=== PATIENT | female | born 1985 | race Caucasian/White ===

== ENCOUNTER 2021-08-26 10:39 | Emergency (ER) | payer OTHER, MEDICAID, SELFPAY ==
[2021-08-26 10:51] VITALS: BP 119/75; PULSE 100; RESP 15; TEMP 36.9; O2SAT 100; BMI 20.5
[2021-08-26 11:22] LABS: COVID19 -Nasal RAPID Negative (Negative)
[2021-08-26] MEDS: OXYCODONE/ACETAMINOPHEN 5/325 TABLET 1 TAB PO (13:07)
[2021-08-26] MEDS: cefTRIAXone 2,000 MG VIAL 1000 MG IM (13:07)
[2021-08-26] MEDS: KETOROLAC 10 MG TABLET PO (13:08)
[2021-08-26] MEDS: DOXYCYCLINE HYCLATE 100 MG TABLET PO (13:08)
[2021-08-26] MEDS: LIDOCAINE 1% (PF) 5 ML 4.2 ML INJ (13:09)
[2021-08-26 13:48] VITALS: BP 126/78; PULSE 92; RESP 18; TEMP 36.4; O2SAT 97
[2021-08-26 15:33] LABS: Urine N gonorrhoeae NOT DETECTED
[2021-08-26 15:39] LABS: Urine Chlamydia NOT DETECTED
--- NOTE | 2021-08-26 16:04 | ED.EAR ---
HPI - Ear Problem <DRAGAN Martinez - Last Filed: 08/26/21 16:13> General Chief complaint: Ear Stated complaint: right ear is in pain, throat hurts, pink eye Time Seen by Provider: 08/26/21 12:27 Source: patient Mode of arrival: Ambulatory History of Present Illness HPI Narrative: This is a 36-year-old female who presents to the emergency department with onset of right ear pain two days ago, and bilateral eye tearing with discharge and eye pain that started yesterday. She states that she is having discharge coming from both eyes, denies any fever, complains of feeling warm and having right ear pain which is quite painful. She denies any shortness of breath, difficulty breathing, denies any possibility of gonorrhea or chlamydia contamination in her eye. She denies any vision changes, denies any nausea vomiting, diarrhea. She denies any injury to her eye. Related Data Allergies Allergy/AdvReac Type Severity Reaction Status Date / Time azithromycin Allergy Verified 08/26/21 10:53 Review of Systems <DRAGAN Martinez - Last Filed: 08/26/21 16:13> Review of Systems Narrative: General: denies fever, chills, malaise, sweats, fatigue Head/Neck: denies headache, neck pain, dizziness Eyes: denies visual changes, endorses bilateral eye redness with thick white discharge, eyelid edema Ears: Rt ear pain, no hearing changes Cardio: denies chest pain, palpitations, edema Respiratory: denies dyspnea, cough, orthopnea GI: denies abdominal pain, nausea, vomiting, or diarrhea : denies dysuria, hematuria, urinary retention, frequency or incontinence MSK: denies joint pain, muscle weakness Skin: denies rash, itching, skin lesions or other Neuro: denies numbness, tingling Patient History <DRAGAN Martinez - Last Filed: 08/26/21 16:13> Social History Smoking Status: Current every day smoker Smoking Status: Current every day smoker tobacco type: vaping alcohol intake frequency: holidays/special occasions only Substance Use Type: does not use Exam <DRAGAN Martinez - Last Filed: 08/26/21 16:13> Narrative Exam Narrative: Independently reviewed vitals signs and nursing notes. General: cooperative, comfortable, in no acute distress, well groomed Head: atraumatic, symmetrical facial expressions Neck: supple, without cervical adenopathy Eyes: equal round and reactive, EOMI, bilateral conjunctivae injected with thick eye discharge coming from both eyes, culture obtained, mild scleral erythema bilaterally Ears: Right TM is bulging, erythematous, suppurative, loss of landmarks and light reflex, left TM is not suppurative, without erythema, normal landmarks Nose: nares patent, no rhinorrhea Mouth/Throat: moist mucus membranes Cardiovascular: regular rate and rhythm, no peripheral edema, warm extremities Respiratory: normal effort, able to speak in complete sentences, no audible wheezing, stridor, or rales. No retractions or tachypnea. GI: abdomen soft, nontender to palpation, nondistended, no masses, no exquisite tenderness with exam, without guarding or rebound. MSK: moves all extremities, neurovascularly intact, no weakness, normal tone Skin: brisk capillary refill, no rash, no erythema Neuro: normal speech and cognition, A&O x3 Psych: mental status is grossly normal, congruent mood, normal affect, pleasant and cooperative Initial Vital Signs Initial Vital Signs: Vital Signs Temperature 98.5 F 08/26/21 10:51 Pulse Rate 100 H 08/26/21 10:51 Respiratory Rate 15 08/26/21 10:51 Blood Pressure 119/75 08/26/21 10:51 Pulse Oximetry 100 08/26/21 10:51 Oxygen Delivery Method 08/26/21 10:51 <Emili Stanley DO - Last Filed: 09/03/21 18:36> Initial Vital Signs Initial Vital Signs: Vital Signs Temperature 98.5 F 08/26/21 10:51 Pulse Rate 100 H 08/26/21 10:51 Respiratory Rate 15 08/26/21 10:51 Blood Pressure 119/75 08/26/21 10:51 Pulse Oximetry 100 08/26/21 10:51 Oxygen Delivery Method 08/26/21 10:51 Course <SUMAN MartinezP - Last Filed: 08/26/21 16:13> Orders Ordered: Discontinued Medications Ceftriaxone Sodium (Ceftriaxone 2,000 Mg Vial) 1,000 mg IM NOW ONE Stop: 08/26/21 12:35 Last Admin: 08/26/21 13:07 Dose: 1,000 mg Documented By: JESSICA Doxycycline Hyclate (Doxycycline Hyclate 100 Mg Tablet) 100 mg PO NOW ONE Stop: 08/26/21 12:35 Last Admin: 08/26/21 13:08 Dose: 100 mg Documented By: JESSICA Ketorolac Tromethamine (Ketorolac 10 Mg Tablet) 10 mg PO NOW ONE Stop: 08/26/21 12:35 Last Admin: 08/26/21 13:08 Dose: 10 mg Documented By: RL Lidocaine HCl (Lidocaine 1% (Pf) 5 Ml) 4.2 ml INJ NOW ONE Stop: 08/26/21 12:35 Last Admin: 08/26/21 13:09 Dose: 4.2 ml Documented By: JESSICA Oxycodone/Acetaminophen (Oxycodone/Acetaminophen 5/325 Tablet) 1 tab PO NOW ONE Stop: 08/26/21 12:35 Last Admin: 08/26/21 13:07 Dose: 1 tab Documented By: JESSICA Vital Signs Vital signs: Vital Signs - 8 hr 08/26/21 10:51 08/26/21 13:48 Temperature 98.5 F 97.6 F Pulse Rate 100 H 92 H Respiratory Rate 15 18 Blood Pressure 119/75 126/78 Pulse Oximetry 100 97 Oxygen Delivery Method Room Air Room Air <Emili Stanley DO - Last Filed: 09/03/21 18:36> Orders Ordered: Discontinued Medications Ceftriaxone Sodium (Ceftriaxone 2,000 Mg Vial) 1,000 mg IM NOW ONE Stop: 08/26/21 12:35 Last Admin: 08/26/21 13:07 Dose: 1,000 mg Documented By: JESSICA Doxycycline Hyclate (Doxycycline Hyclate 100 Mg Tablet) 100 mg PO NOW ONE Stop: 08/26/21 12:35 Last Admin: 08/26/21 13:08 Dose: 100 mg Documented By: JESSICA Ketorolac Tromethamine (Ketorolac 10 Mg Tablet) 10 mg PO NOW ONE Stop: 08/26/21 12:35 Last Admin: 08/26/21 13:08 Dose: 10 mg Documented By: JESSICA Lidocaine HCl (Lidocaine 1% (Pf) 5 Ml) 4.2 ml INJ NOW ONE Stop: 08/26/21 12:35 Last Admin: 08/26/21 13:09 Dose: 4.2 ml Documented By: JESSICA Oxycodone/Acetaminophen (Oxycodone/Acetaminophen 5/325 Tablet) 1 tab PO NOW ONE Stop: 08/26/21 12:35 Last Admin: 08/26/21 13:07 Dose: 1 tab Documented By: JESSICA Vital Signs Vital signs: Vital Signs - 8 hr 08/26/21 10:51 08/26/21 13:48 Temperature 98.5 F 97.6 F Pulse Rate 100 H 92 H Respiratory Rate 15 18 Blood Pressure 119/75 126/78 Pulse Oximetry 100 97 Oxygen Delivery Method Room Air Room Air Medical Decision Making <Carolee Kumari R[employer] D[employer] HELPER - Last Filed: 08/26/21 16:13> Lab Data Labs: Lab Results 08/26/21 08/26/21 Range/Units 11:04 13:50 Ur Chlamydia DNA (PCR) Not detected SARS-CoV-2 (PCR) Negative (Negative) N gonorrhoeae DNA (PCR) Not detected Point of Care Testing Rapid Strep A Negative Point of care testing: Point of Care Testing Rapid Strep A Negative MDM Narrative Medical decision making narrative: This is a 36-year-old female presents to the emergency department with bilateral eye inflammation, pain and discharge, and right ear pain with symptoms starting last night. Patient's COVID PCR was negative today, urine was screened for chlamydia and gonorrhea, this was negative, culture obtained from conjunctival discharge, g stain shows many white blood cells without organisms, cultures pending, throat culture obtained, patient's rapid group a strep was negative. On exam, patient's right tympanic membrane is bulging, suppurative, erythematous, and appears like acute otitis media. Discussed possibility of gonorrhea or chlamydial infection, patient denies this being a possibility. Patient was treated in the emergency department with concern for gonorrhea due to the copious amount of discharge coming from both of her eyes. She was given 1 g of ceftriaxone and doxycycline in the emergency department, she was given Percocet and Toradol for pain. States that she feels better, she wishes to discharge prior to waiting for her urine gonorrhea and chlamydia which was negative. She was prescribed Augmentin for seven days b.i.d. dosing pending her cultures. I have a strong suspicion that this is gonorrhea or chlamydia. She was given Polytrim ophthalmic drops and Augmentin. Patient is appropriate and amenable to discharge home. Vital signs are stable on repeat examination is unremarkable. Patient has been informed of results. Patient has been given strict return to ER precautions for any new or worsening symptoms. Patient understands to follow up closely with outpatient providers as instructed. Patient understands plan and agrees to discharge home. All questions and concerns answered at this time. <Emili Lizeth, DO - Last Filed: 09/03/21 18:36> Lab Data Labs: Lab Results 08/26/21 08/26/21 Range/Units 11:04 13:50 Ur Chlamydia DNA (PCR) Not detected SARS-CoV-2 (PCR) Negative (Negative) N gonorrhoeae DNA (PCR) Not detected Point of Care Testing Rapid Strep A Negative Point of care testing: Point of Care Testing Rapid Strep A Negative Discharge Plan Departure Patient Disposition: Home Clinical Impression: Otitis media Qualifiers: Otitis media type: suppurative Chronicity: acute Laterality: right Recurrence: non-recurrent Spontaneous tympanic membrane rupture: without spontaneous rupture Qualified Code(s): H66.001 - Acute suppurative otitis media without spontaneous rupture of ear drum, right ear Acute bacterial conjunctivitis Qualifiers: Laterality: bilateral Qualified Code(s): H10.33 - Unspecified acute conjunctivitis, bilateral Instructions: Middle Ear Infection, Conjunctivitis Activity Restrictions/Additional Instructions: *You have been diagnosed with a right ear infection and bilateral conjunctivitis. I will call you if your cultures grow out anything that needs an antibiotic adjustment. So far for now, please take Augmentin twice a day for the next seven days. For your eyes, please use the Polytrim eye drops every 3 hours as needed for at least seven days. Please follow-up with Dr. Taylor if this gets any worse, on my call you later today and add on another antibiotic and was sent to this pharmacy if I need to. Thank you for trusting us with your care, thank you for your patients, I hope you feel better soon. *What to do: *Please continue to take your regular medications as directed. [ x] New medication prescriptions sent to your pharmacy: [Dre jennifer Godoy ] [ ] New medication written as a paper prescription [ ] No new medications given *Please follow up with your primary care provider in 2-3 days, call for an appointment. Let them know you were seen in the Emergency Department and that we asked that you be seen for follow-up. We will electronically transmit a record of today's note if your PCP is in our system *If you do not have a primary care provider please contact [phone] to establish care with one of the [facility] primary care providers. *Return to Emergency Department if you should have any new, worsening or concerning symptoms, such as [fever greater than 101F, chills, worsening pain, persistent vomiting or other bothersome symptoms] Referrals: Tali Taylor MD [Physician] - Visit Report Forms: Patient Portal/API <Emili Stanley DO - Last Filed: 09/03/21 18:36> Cosign ED Attending Wilmanature Attestation: I was immediately available in the department for consultation. Documentation has been reviewed. I agree with assessment and plan.
== END 2021-08-26 13:54 | disposition home or self-care (01) ==
PROVIDERS: Emergency Medicine; Emergency Provider Nurse Practitioner Critical Care Medicine
DX: H66.001 Acute suppurative otitis media without spontaneous rupture of ear drum, right ear (principal); H10.33 Unspecified acute conjunctivitis, bilateral; Z20.822 Contact with and (suspected) exposure to COVID-19
CPT/HCPCS: 87070; 87077; 87205; 87491; 87591; 87635; 87880; 96372; 99283; C9803; J0696

== ENCOUNTER 2023-04-14 17:12 | Emergency (ER) | payer OTHER, MEDICAID, SELFPAY ==
[2023-04-14 17:28] VITALS: BP 114/63; PULSE 80; RESP 16; TEMP 36.7; O2SAT 98; BMI 19.7
--- NOTE | 2023-04-14 17:29 | DI.RAD.S_ITS ---
PROCEDURE: XR WRIST LT MIN 3V INDICATIONS: pain, swelling TECHNIQUE: 4 views of the wrist were acquired. COMPARISON: None. FINDINGS: Bones: No fractures or dislocations. No suspicious bony lesions. Soft tissues: No suspicious soft tissue calcifications. IMPRESSION: No acute bony abnormality. If it would be helpful for clinical management decision making, please consider a dedicated, scheduled wrist MRI for further evaluation (assuming that there is no contraindication). If there is strong clinical concern for a ligamentous abnormality, this should be performed according to the MR arthrogram protocol. Dictated by: Leland Hood M.D. on 04/14/2023 at 17:17 Approved by: Leland Hood M.D. on 04/14/2023 at 17:18
--- NOTE | 2023-04-14 17:31 | ED.UPPEXIN ---
HPI - Extremity Injury (Upper) <ISABELLA Swann Last Filed: 04/14/23 18:29> General Chief Complaint: Extremity Injury, Upper Stated Complaint: wrist pain Time Seen by Provider: 04/14/23 17:31 Source: patient Mode of arrival: Ambulatory History of Present Illness HPI narrative: This is a 37-year-old female presents to the emergency department due to left wrist weakness onset 3 days ago. States that she ?slept on it funny? she was unable to extend at her left wrist. She denies any pain. Does state she was mild peripheral neuropathy chronically. No trauma to the wrist. Related Data Allergies Allergy/AdvReac Type Severity Reaction Status Date / Time azithromycin Allergy Verified 08/26/21 10:53 Review of Systems <ISABELLA Swann Last Filed: 04/14/23 18:29> Review of Systems Narrative: GENERAL: Denies chills, fatigue, malaise, fever, sweats. HEENT: Denies sinus pain, ear pain, sore throat, difficulty swallowing, dizziness. RESPIRATORY: Denies dyspnea, cough, wheezing, hemoptysis, sputum. CARDIOVASCULAR: Denies chest pain, palpitations, orthopnea, edema, GASTROINTESTINAL: Denies nausea, vomiting, abdominal pain, diarrhea, constipation, melena. : Denies dysuria, frequency, incontinence, hematuria, urinary retention. MUSCULOSKELETAL: Left wrist weakness SKIN: Denies rash, skin lesions, or other NEUROLOGIC: Denies weakness, headache, numbness, change in speech, confusion, seizures, incoordination. PSYCHIATRIC: No concerning psychosocial issues. 12 point review of systems is negative except for those stated above Patient History <ISABELLA Swann Last Filed: 04/14/23 18:29> Social History Smoking Status: Current every day smoker Smoking Status: Current every day smoker tobacco type: vaping alcohol intake frequency: holidays/special occasions only Substance Use Type: does not use Exam <ISABELLA Swann Last Filed: 04/14/23 18:29> Narrative Exam Narrative: GENERAL: Well-developed patient, in mild distress. HEAD: Atraumatic. Normocephalic. EYES: Pupils equal round and reactive. Extraocular motions intact. No scleral icterus. No injection or drainage. ENT: Nose without bleeding, purulent drainage. Throat without erythema, tonsillar hypertrophy or exudate. Airway patent. NECK: Trachea midline. Non tender EXTREMITIES: Decreased ability to extend at the wrist, no pain with palpation. Maintains adequate childrens club attendant strength NEURO: AOx3. SKIN: No rash or erythema of visible areas Initial Vital Signs Initial Vital Signs: Vital Signs Temperature 98.1 F 04/14/23 17:28 Pulse Rate 80 04/14/23 17:28 Respiratory Rate 16 04/14/23 17:28 Blood Pressure 114/63 04/14/23 17:28 Pulse Oximetry 98 04/14/23 17:28 Oxygen Delivery Method Room Air 04/14/23 17:28 <DO Nandini Marcelino Last Filed: 04/15/23 07:12> Initial Vital Signs Initial Vital Signs: Vital Signs Temperature 98.1 F 04/14/23 17:28 Pulse Rate 80 04/14/23 17:28 Respiratory Rate 16 04/14/23 17:28 Blood Pressure 114/63 04/14/23 17:28 Pulse Oximetry 98 04/14/23 17:28 Oxygen Delivery Method Room Air 04/14/23 17:28 Course <Tobias Jones PA-C - Last Filed: 04/14/23 18:29> Orders Ordered: ED Orders 04/14/23 17:29 XR wrist LT min 3V Stat Vital Signs Vital signs: Vital Signs - 8 hr 04/14/23 17:28 Temperature 98.1 F Pulse Rate 80 Respiratory Rate 16 Blood Pressure 114/63 Pulse Oximetry 98 Oxygen Delivery Method Room Air <DO Nandini Marcelino Last Filed: 04/15/23 07:12> Orders Ordered: ED Orders 04/14/23 17:29 XR wrist LT min 3V Stat Vital Signs Vital signs: Vital Signs - 8 hr 04/14/23 17:28 Temperature 98.1 F Pulse Rate 80 Respiratory Rate 16 Blood Pressure 114/63 Pulse Oximetry 98 Oxygen Delivery Method Room Air MDM - Extremity Injury (Upper) <ISABELLA Swann Last Filed: 04/14/23 18:29> Imaging Data Extremity x-ray #1: Radiologist's Impression: [address] [address] XRay Report Signed Patient: Carolee Cortez MR#: [id number] : 1985 Acct:[id number] Age/Sex: 37 / F Date of Service: 04/14/23 Loc: ED Accession Number: [id number] Procedure: XR wrist LT min 3V Ordering Provider: Augustine Bess D.O. PROCEDURE: XR WRIST LT MIN 3V INDICATIONS: pain, swelling TECHNIQUE: 4 views of the wrist were acquired. COMPARISON: None. FINDINGS: Bones: No fractures or dislocations. No suspicious bony lesions. Soft tissues: No suspicious soft tissue calcifications. IMPRESSION: No acute bony abnormality. If it would be helpful for clinical management decision making, please consider a dedicated, scheduled wrist MRI for further evaluation (assuming that there is no contraindication). If there is strong clinical concern for a ligamentous abnormality, this should be performed according to the MR arthrogram protocol. Dictated by: Leland Hood M.D. on 04/14/2023 at 17:17 Approved by: Leland Hood M.D. on 04/14/2023 at 17:18 [facility] Narrative Medical decision making narrative: ED course: This is a 37-year-old female presents emergency department due to suspected radial nerve palsy after sleeping on it wrong. No trauma to the wrist. X-rays unremarkable. We will place her in a wrist splint and recommended wrist exercises. Suspect self-limiting. No weakness to the remainder of her body and very low concern for any kind CVA. CC: Wrist weakness Complicating co-morbidities: None Data collected from: Previous notes Medical records reviewed: Patient was seen here 2 years ago due to bacterial conjunctivitis. No relevant medical history Differential considered, but not limited to: Fracture, radial nerve palsy, intracranial bleed Exam documented above, pertinent findings include: Weakness with extension of the wrist Lab Test results independently reviewed as above. Pertinent findings: None obtained Imaging studies independently reviewed: Unremarkable Scores Used: None MIPS Elements: None Consultations: None Treatments: Wrist brace Re-evaluations: None Discussion: Discussed plan with the patient was comfortable with the plan Diagnosis: Radial nerve palsy Disposition: see below, along with detailed discharge instructions that have been reviewed with patient as well as indications for ED re-evaluation and additional outpatient follow up Discharge Plan Departure Patient Disposition: Home Clinical Impression: Acute radial nerve palsy Activity Restrictions/Additional Instructions: Thank you for coming to the [facility] Emergency Department today. As we discussed I suspect the wrist weakness you are having his due to an inflammation of your radial nerve. Please keep your wrist in the splint. Please continue to attempt strengthening your wrist with the exercises. This should improve over time. Please return to the emergency department if you develop any significant new pain, fevers, or any other concerning signs or symptoms. I hope you feel better soon. Please follow up with your primary care provider within a week if your symptoms continue. If you do not have a primary care provider please contact the [facility] Resource line at [phone]. They will ask some questions about your medical history and help you get set up with a provider in the community. Referrals: Miscellaneous,Doctor, [Primary Care Provider] - Stand Alone Forms: Patient Portal/[facility] ED Sign-out <Augustine Bess DO - Last Filed: 04/15/23 07:12> Cosign ED Attending Cosignature Attestation: Dr Bess Co-Sign Statement: I was available for consultation during this patient's emergency department visit. This chart is signed by myself for administrative purposes only. I did not have direct contact with this patient during this visit. They were seen independently by the APC.
== END 2023-04-14 18:33 | disposition home or self-care (01) ==
PROVIDERS: Emergency Provider Physician Assistant Medical
DX: G56.32 Lesion of radial nerve, left upper limb (principal)
CPT/HCPCS: 29125; 73110; 99283

== ENCOUNTER 2024-04-04 16:41 | Observation (INO) | payer OTHER, SELFPAY ==
[2024-04-04] VITALS (19 sets, daily range): BP systolic 115–147; BP diastolic 68–93; PULSE 101–124; RESP 10–24; TEMP 36.5–37.4; O2SAT 95–100; BMI 19.7
--- NOTE | 2024-04-04 17:10 | EKG_ITS ---
[address] [address] Test Date: 2024-04-04 Pat Name: Carolee Cortez Department: Room: A Gender: Female Director [employer]: ASHISH : 1985 Requested By: Order Number: [id number] Reading MD: Kenneth Carlton MD Measurements Intervals [place] Rate: 118 P: 86 SD: 114 QRS: 82 QRSD: 84 T: 47 QT: 310 QTc: 434 Interpretive Statements Sinus tachycardia Right atrial enlargement Electronically Signed On 04-05-2024 9:51:54 PST by Kenneth Carlton MD
--- NOTE | 2024-04-04 17:19 | DI.US.S_ITS ---
PROCEDURE: US ARTERIAL DUPLEX LE RT INDICATIONS: no blood flow to foot TECHNIQUE: Color and pulse Doppler interrogation was performed of the right lower extremity arterial system, with image documentation. COMPARISON: None. FINDINGS: Common femoral artery: 155 cm/sec, with triphasic flow. Deep femoral artery: 80 cm/sec, with triphasic flow. Proximal superficial femoral artery: 160 cm/sec, with biphasic flow. Mid superficial femoral artery: 138 cm/sec, with biphasic flow. Distal superficial femoral artery: 84 cm/sec, with biphasic flow. Popliteal artery: 49 cm/sec, with biphasic flow. Posterior tibial artery: No flow visualized. Anterior tibial artery/dorsalis pedis: No flow visualized. Rahman-scale imaging description: No atherosclerotic disease. IMPRESSION: No flow visualized in the calf arteries. Patent vasculature extending from the common femoral artery to the popliteal artery. CTA has been ordered at time of dictation for further characterization. Dictated by: Devonte Mejía M.D. on 04/04/2024 at 18:24 Approved by: Devonte Mejía M.D. on 04/04/2024 at 18:26
--- NOTE | 2024-04-04 17:19 | ED.EXTPRO ---
HPI - Extremity Problem General Chief complaint: Extremity Problem,Nontraumatic Stated complaint: right leg swollen from foot to hip Time Seen by Provider: 04/04/24 17:14 Source: patient Mode of arrival: Wheelchair Related Data Allergies Allergy/AdvReac Type Severity Reaction Status Date / Time azithromycin Allergy Verified 04/04/24 16:55 Patient History Social History Smoking Status: Current every day smoker Smoking Status: Current every day smoker tobacco type: vaping alcohol intake frequency: holidays/special occasions only Exam Initial Vital Signs Initial Vital Signs: Vital Signs Temperature 97.7 F 04/04/24 16:43 Pulse Rate 124 H 04/04/24 16:43 Respiratory Rate 14 04/04/24 16:43 Blood Pressure 115/86 04/04/24 16:43 Pulse Oximetry 99 04/04/24 16:43 Oxygen Delivery Method Room Air 04/04/24 16:43 Course Orders Ordered: ED Orders 04/04/24 17:08 US periph venous low extrem rt Stat 04/04/24 17:19 US arterial duplex LE RT Stat Vital Signs Vital signs: Vital Signs - 8 hr 04/04/24 16:43 Temperature 97.7 F Pulse Rate 124 H Respiratory Rate 14 Blood Pressure 115/86 Pulse Oximetry 99 Oxygen Delivery Method Room Air Discharge Plan Departure Referrals: Miscellaneous,DoctorMD [Primary Care Provider] -
--- NOTE | 2024-04-04 17:22 | DI.RAD.S_ITS ---
PROCEDURE: XR CHEST 1V INDICATIONS: altered mental status TECHNIQUE: One view of the chest was acquired. COMPARISON: None. FINDINGS: Surgical changes and devices: None. Lungs and pleura: Lungs are clear. No pleural effusions or pneumothorax. Mediastinum: Mediastinal contours appear normal. Heart size is normal. Bones and chest wall: No suspicious bony lesions. Overlying soft tissues appear unremarkable. IMPRESSION: No acute cardiopulmonary abnormality is seen. Dictated by: Devonte Mejía M.D. on 04/04/2024 at 18:31 Approved by: Devonte Mejía M.D. on 04/04/2024 at 18:31
[2024-04-04] MEDS: SODIUM CHLORIDE 0.9% 1,000 ML 1000 ML IV (17:31)
[2024-04-04] MEDS: CEFEPIME 2 GM in SODIUM CHLORIDE 0.9% 100 ML IV (17:31)
[2024-04-04 17:32] LABS: Add Manual Diff / Slide Review NO; Basophils Absolute Auto 0 /uL (0-100); Basophils Percent Auto 0.2 % (0-2); Eosinophils Absolute Auto 0 /uL (0-450); Hemoglobin 18.4 g/dL (12.0-16.0); Lymphocytes Absolute Auto 900 /uL (1100-4500); Lymphocytes Percent Auto 7.5 % (25-40); Mean Corpuscular Hemoglobin 28.3 PG (26-34); Mean Corpuscular Volume 83.3 fL (80-100); Monocytes Absolute Auto 700 /uL (0-900); Neutrophils Absolute Auto 10200 /uL (1500-7000); Neutrophils Percent Auto 86.3 % (50-75); Platelet Count 303 X10^3/uL (150-400); Red Blood Cell Count 6.48 X10^6/uL (4.0-5.2); Red Cell Distribution Width 13.1 % (11.6-14.8); White Blood Cell Count 11.9 X10^3/uL (4.5-11.0)
[2024-04-04 17:37] LABS: Alanine Aminotransferase 550 IU/L (<35); Albumin 4.8 g/dL (3.5-5.0); Albumin Globulin Ratio 1.1 (1.0-2.8); Alkaline Phosphatase 80 U/L (38-126); BUN Creatinine Ratio 13.3 (6-22); Bilirubin Total 0.8 mg/dL (0.2-1.3); Blood Urea Nitrogen 17 mg/dL (7-17); Carbon Dioxide 28 mmol/L (22-32); Chloride 94 mmol/L (98-107); Estimated Glomerular Filt Rate 56 mL/min (>60); Globulin 4.2 g/dL (1.7-4.1); Glucose 139 mg/dL (70-100); HEMOLYSIS 28 (0-50); Lipase 65 U/L (23-300); Magnesium 2.4 mg/dL (1.6-2.3); Potassium 4.5 mmol/L (3.4-5.1); Sodium 130 mmol/L (137-145)
[2024-04-04 17:49] LABS: Troponin I < 0.012 ng/mL (0.01-0.034)
[2024-04-04 17:53] LABS: Aspartate Aminotransferase 2876 IU/L (14-36)
--- NOTE | 2024-04-04 18:17 | ED.EXTPRO ---
HPI - Extremity Problem General Chief complaint: Extremity Problem,Nontraumatic Stated complaint: right leg swollen from foot to hip Time Seen by Provider: 04/04/24 17:14 Source: patient Mode of arrival: Wheelchair History of Present Illness HPI Narrative: 38-year-old female with history of hepatitis C, polysubstance abuse, reports last smoking methamphetamine and fentanyl 4 days ago presents for 1-2 days of right lower extremity pain and swelling. Patient states that she woke up 1-2 days ago with gradual onset pain and swelling in her foot and calf. This has gradually worsened over the last day or so and she was here for evaluation. She denies sleeping on anything unusual or any other injuries. On evaluation foot is dusky in appearance with firm calf. Denies recent IV drug use but says that she has injected in the past Related Data Home Medications Medication Instructions Recorded Confirmed No Known Home Medications 04/05/24 04/05/24 Allergies Allergy/AdvReac Type Severity Reaction Status Date / Time azithromycin Allergy Verified 04/04/24 16:55 Patient History Social History Smoking Status: Current every day smoker Smoking Status: Current every day smoker tobacco type: vaping alcohol intake frequency: holidays/special occasions only Exam Initial Vital Signs Initial Vital Signs: Vital Signs Temperature 97.7 F 04/04/24 16:43 Pulse Rate 124 H 04/04/24 16:43 Respiratory Rate 14 04/04/24 16:43 Blood Pressure 115/86 04/04/24 16:43 Pulse Oximetry 99 04/04/24 16:43 Oxygen Delivery Method Room Air 04/04/24 16:43 Const: Awake, alert, appears chronically unwell, older than stated age Cardiac: tachycardia, regular rhythm, no obvious murmurs RESP: unlabored, clear bilaterally, no wheezing MSK: marked swelling RLE, calf firm to touch. Able to wiggle toes. No pain with passive ROM Skin: dusky appearance of R ankle/foot Neuro: AO x3, CN II-XII grossly intact, decreased/absent sensation from R ankle downwards Course Orders Ordered: ED Orders 04/04/24 18:16 CT angio abd aorta runoff Stat 04/04/24 19:58 Consult to Orthopedic Surgery Stat 04/05/24 01:20 Urinalysis and Microscopic Stat tox [Urine Drug Screen, Rapid] Stat Discontinued Medications Fentanyl (Fentanyl 100 Mcg/2 Ml Inj) 0 mcg IV Q5MIN PRN PRN Reason: Pain, Severe (7-10) Fentanyl (Fentanyl 100 Mcg/2 Ml Inj) 0 mcg IV Q5M PRN PRN Reason: Pain, Moderate (4-6) Fentanyl (Fentanyl 100 Mcg/2 Ml Inj) 0 mcg IV Q5M PRN PRN Reason: Pain, Severe (7-10) Heparin Sodium (Porcine) (Heparin 5,000 Unit/Ml Vial) 2,500 unit 50 unit/kg (2500 unit) IV NOW ONE Stop: 04/04/24 18:50 Last Admin: 04/04/24 19:09 Dose: 2,500 unit Documented By: MORENO Hydromorphone HCl (Hydromorphone 1 Mg Inj) 1 mg IV NOW ONE Stop: 04/04/24 18:56 Last Admin: 04/04/24 19:09 Dose: 1 mg Documented By: MORENO Cefepime HCl 2 gm/ Sodium (Chloride) 100 mls @ 200 mls/hr IV NOW ONE Stop: 04/04/24 17:21 Last Infusion: 04/04/24 18:11 Dose: Infused Documented By: Admin: 04/04/24 17:31 Dose: 200 mls/hr Documented By: SAMANTHA Sodium Chloride (Normal Saline 0.9%) 1,000 mls @ 1,000 mls/hr IV BOLUS ONE Stop: 04/04/24 18:19 Last Infusion: 04/04/24 18:39 Dose: Infused Documented By: Admin: 04/04/24 17:31 Dose: 1,000 mls/hr Documented By: SAMANTHA Vancomycin HCl (Vancomycin) 1,250 mg in 250 mls @ 250 mls/hr IV NOW ONE Stop: 04/04/24 18:33 Last Infusion: 04/04/24 19:58 Dose: Infused Documented By: Infusion: 04/04/24 18:53 Dose: 250 mls/hr Documented By: Infusion: 04/04/24 18:40 Dose: 0 mls/hr Documented By: Admin: 04/04/24 18:38 Dose: 250 mls/hr Documented By: MORENO Vancomycin HCl (Vancomycin) 750 mg in 150 mls @ 150 mls/hr IV Q12H NISH Sodium Chloride (Normal Saline 0.9%) 1,000 mls @ 84 mls/hr IV CONT NISH Last Admin: 04/05/24 01:45 Dose: 84 mls/hr Documented By: Infusion: 04/05/24 01:45 Dose: Infused Documented By: Admin: 04/05/24 00:05 Dose: 84 mls/hr Documented By: Infusion: 04/05/24 00:05 Dose: Infused Documented By: Admin: 04/04/24 23:26 Dose: 84 mls/hr Documented By: BONIFACIO Cefazolin Sodium/Dextrose (Ancef) 100 mls @ 200 mls/hr IV NOW ONE Stop: 04/05/24 00:58 Last Infusion: 04/05/24 00:01 Dose: 200 mls/hr Documented By: Admin: 04/04/24 23:38 Dose: 200 mls/hr Documented By: LIBRADO Ondansetron HCl (Ondansetron 4 Mg/2 Ml Inj) 4 mg IV NOW PRN PRN Reason: Nausea And Vomiting Oxycodone/Acetaminophen (Oxycodone/Acetaminophen 5/325 Tablet) 1 tab PO PACUNOW PRN PRN Reason: Mild or Moderate Pain Vancomycin HCl (Vancomycin Per Pharmacy) 1 request MISC NOW ONE Stop: 04/04/24 17:21 Last Admin: 04/04/24 17:53 Dose: Not Given Documented By: SAMANTHA Vancomycin HCl (Vancomycin Trough) 1 request MIS 0530 ONE Stop: 04/06/24 05:31 Vancomycin HCl (Vancomycin Peak) 1 request MISC 0800 ONE Stop: 04/06/24 08:01 Vital Signs Vital signs: Vital Signs - 8 hr 04/04/24 18:30 04/04/24 18:30 04/04/24 18:52 Pulse Rate 105 H 103 H Respiratory Rate Blood Pressure 128/86 Pulse Oximetry 100 100 Oxygen Delivery Method 04/04/24 18:52 04/04/24 19:00 04/04/24 19:00 Pulse Rate 102 H Respiratory Rate 11 L Blood Pressure 131/76 124/77 Pulse Oximetry 100 Oxygen Delivery Method Room Air 04/04/24 19:30 04/04/24 19:30 04/04/24 20:00 Pulse Rate 110 H Respiratory Rate 10 L Blood Pressure 129/93 H 127/68 Pulse Oximetry 99 Oxygen Delivery Method 04/04/24 20:00 04/04/24 20:30 04/04/24 20:30 Pulse Rate 107 H 108 H Respiratory Rate 15 15 Blood Pressure 137/80 Pulse Oximetry 100 97 Oxygen Delivery Method 04/04/24 21:00 04/04/24 21:00 04/04/24 21:30 Pulse Rate 107 H 106 H Respiratory Rate 15 15 Blood Pressure 144/83 H Pulse Oximetry 98 99 Oxygen Delivery Method Room Air 04/04/24 21:30 04/04/24 22:00 04/04/24 22:00 Pulse Rate 105 H Respiratory Rate 16 Blood Pressure 143/87 H 143/91 H Pulse Oximetry 99 Oxygen Delivery Method 04/04/24 22:30 04/04/24 22:30 04/04/24 23:00 Pulse Rate 101 H 103 H Respiratory Rate 14 16 Blood Pressure 147/92 H Pulse Oximetry 99 100 Oxygen Delivery Method Room Air 04/04/24 23:00 Pulse Rate Respiratory Rate Blood Pressure 138/90 Pulse Oximetry Oxygen Delivery Method MDM - Extremity (Nontraumatic) Lab Data 04/04/24 17:00 04/05/24 00:30 Labs: Lab Results 04/04/24 Range/Units 17:00 WBC 11.9 H (4.5-11.0) X10^3/uL RBC 6.48 H (4.0-5.2) X10^6/uL Hgb 18.4 H (12.0-16.0) g/dL Hct 54.0 H (36-46) % MCV 83.3 (80-100) fL MCH 28.3 (26-34) PG MCHC 34.0 (30-36) % RDW 13.1 (11.6-14.8) % Plt Count 303 (150-400) X10^3/uL Neut % (Auto) 86.3 H (50-75) % Lymph % (Auto) 7.5 L (25-40) % [place] % (Auto) 6.0 (3-14) % Eos % (Auto) 0.0 L (2-4) % Baso % (Auto) 0.2 (0-2) % Neut # (Auto) 89417 H (4157-2497) /uL Lymph # (Auto) 900 L (2173-2469) /uL [place] # (Auto) 700 (0-900) /uL Eos # (Auto) 0 (0-450) /uL Baso # (Auto) 0 (0-100) /uL Sodium 130 L (137-145) mmol/L Potassium 4.5 (3.4-5.1) mmol/L Chloride 94 L (98-107) mmol/L Carbon Dioxide 28 (22-32) mmol/L BUN 17 (7-17) mg/dL Creatinine 1.28 H (0.52-1.04) mg/dL Estimated GFR 56 L (>60) mL/min BUN/Creatinine Ratio 13.3 (6-22) Glucose 139 H (70-100) mg/dL Lactate 2.0 (0.7-2.1) mmol/L Calcium 9.0 (8.4-10.2) mg/dL Magnesium 2.4 H (1.6-2.3) mg/dL Total Bilirubin 0.8 (0.2-1.3) mg/dL AST 2876 H (14-36) IU/L ALT 550 H (<35) IU/L Alkaline Phosphatase 80 (38-126) U/L Total Creatine Kinase > 478978 H (30-135) U/L Troponin I < 0.012 (0.01-0.034) ng/mL Total Protein 9.0 H (6.3-8.2) g/dL Albumin 4.8 (3.5-5.0) g/dL Globulin 4.2 H (1.7-4.1) g/dL Albumin/Globulin Ratio 1.1 (1.0-2.8) Lipase 65 (23-300) U/L Imaging Data CT scan - abdomen/pelvis: Radiologist's Impression: PROCEDURE: CT ANGIO ABD AORTA RUNOFF INDICATIONS: suspect acute arterial occlusion RLE TECHNIQUE: After the administration of intravenous contrast, 2.5 mm sections acquired from T12 to the feet, with optional delayed image acquisition from the knees to the feet. 3-dimensional maximum intensity projection (MIP) coronal and sagittal reformats, and/or 3-dimensional volume rendering reformatting was then performed. For radiation dose reduction, the following was used: automated exposure control. COMPARISON: None. FINDINGS: Image Quality: Diagnostic. Abdominal aorta: No atherosclerotic disease or significant stenosis. Splanchnic vessels: No atherosclerotic disease. Right lower extremity: There is occlusion of the right lower extremity calf vasculature just beyond the trifurcation. Left lower extremity: Widely patent. Lower Chest: Not included. ABDOMEN: Liver: No solid mass where visualized. Gallbladder: No radiopaque gallstones or wall thickening. Biliary ducts: No biliary dilation. Pancreas: No ductal dilation. Spleen: Size is within normal limits. Adrenal Glands: No adrenal nodules. Kidneys and Ureters: No hydronephrosis. No solid mass. No complex renal cystic lesion which requires follow up. Stomach and Bowel: Normal colonic caliber, without significant wall thickening. Peritoneum: No abnormal intraperitoneal fluid. No free air. Ventral Wall: No hernia. Abdominal Nodes: No retroperitoneal or mesenteric adenopathy by size criteria. Vessels: Aorta and inferior vena cava are normal in size. PELVIS: Pelvic Organs: Unremarkable. Bladder: Unremarkable. Pelvic Nodes: No enlarged lymph nodes. Miscellaneous: No inguinal hernias are seen. Bones: No aggressive osseous abnormality. Large right hip joint effusion. Other: Significant muscular edema of the right lower extremity, particularly of the calf muscles. There is no significant fat deep to the fascial planes. IMPRESSION: Occlusion of the right lower extremity calf arteries, just beyond the trifurcation. Significant muscular edema of the right lower extremity calf; compartment syndrome is not excluded given the edema and the vessel occlusion. Large right hip joint effusion. Consider sampling to exclude an infectious process. No discitis/osteomyelitis of the visualized lumbar spine . Findings discussed with Dr. Ramirez at 7:17 p.m. On 04/04/2024. Dictated by: Devonte Mejía M.D. on 04/04/2024 at 19:16 Approved by: Devonte Mejía M.D. on 04/04/2024 at 19:22 [facility] Narrative Medical decision making narrative: Patient with at least 1-2 days of increasing swelling in the right lower extremity. Calf is firm to touch and distal limb is blue in color. Ultrasound paged stat for arterial evaluation. They were unable to find arterial flow beneath the knee and a stat CT angio was ordered for assessment. It was unclear exactly how this may have occurred, patient can not identify any trauma or inciting event. Mother at bedside states that the closest approximation of exact onset was at least 1-1.[address] notified to push images stat to facilities in case higher level surgeons are needed. Daytime physician ordered empiric vancomycin and cefepime. Due to possible vascular occlusion heparin bolus and drip ordered. CT angio concerning for compartment syndrome and decreased arterial flow beneath the trifurcation. Orthopedic surgery paged stat for evaluation. Dr. Miranda arrived at bedside to evaluate patient. Based on evaluation and onset of symptoms this is likely missed compartment syndrome and patient will possibly need amputation. Recommended transfer to higher level of care for limb salvage including vascular surgery services. Offered to do a fasciotomy prior to transfer if recommended by facility. Patient was accepted ED to ED at [facility] with Dr. De Anda. They are still pending receipt of images however they will page vascular surgery without the images since she was going emergently to the ED. air transport paged for transport. 2049 -after receiving ER to ER acceptance we received a call back from [facility]. Vascular surgery was consulted who stated that they have no capacity at this time due to multiple other critical patients. Transfer to [place] canceled. We will continue to look for accepting facilities who can treat patient. Dr. Miranda of ortho notified of update. No planned fasciotomy without accepting facility at this time. 2223 - Case discussed with Dr. Downey of [facility] vascular surgery. He requested fasciotomy be done at our facility prior to transfer, but it is happy to see the patient for additional management. He did request that we call back with fasciotomy intraoperative findings. Dr. Miranda aware, will take to OR. Pending hospitalist callback [phone] - Case discussed with Dr. Porter of hospitalist medicine. Accepted patient for transfer 0030 - Dr. Miranda informed me that patient had no viable muscle and pulses were not palpable. Reported concern that patient about to go to rhabdomyelitis as urine becoming brown in color. Repeat BMP ordered from PACU. Case discussed with Dr. Downey of vascular surgery. He stated that if patient was going into rhabdo and needs a bicarb drip then he was uncertain if this would be able to be managed on the floor or if it needs the ICU. The hospitalist was re-paged for assessment. 0105 - Rpt BMP shows slightly worsening kidney function, however CO2 27, does not appear to be acidotic at this time. Bicarb held, IV normal saline continues to infuse. 0220 - patient transported to higher level of care. Critical Care Time Critical Care Time Critical Care Time: Yes Total Critical Care Time: 78 Attestation: Compartment syndrome with complete arterial occlusion requiring stat ortho evaluation, emergent transfer for higher level of care, discussion with numerous specialists and facilities Discharge Plan Departure Patient Disposition: [facility] Clinical Impression: Compartment syndrome of right lower extremity
[2024-04-04] MEDS: VANCOMYCIN 1,250 MG/250 ML PIGGYBACK 250 MG IV (18:38)
[2024-04-04] MEDS: HYDROMORPHONE 1 MG INJ IV (19:09)
[2024-04-04] MEDS: HEPARIN 5,000 UNIT/ML VIAL 2500 UNIT IV (19:09)
[2024-04-04 19:43] LABS: Creatine Kinase > 120000 U/L (30-135)
--- NOTE | 2024-04-04 20:01 | P.HP_ITS ---
History of Present Illness History of Present Illness Chief complaint: right leg swollen from foot to hip Narrative: I was called by the emergency department physician at 7:20 p.m. today. There were concerns for compartment syndrome in this patient. I came immediately to the bedside, arriving at approximately 7:35 p.m.. I have evaluated the patient and ascertained what history I can from the patient as well as her mother. This is outlined below: The patient's calf on the right side has been very swollen. This has been present for at least 24 hours per the patient's mother. Unfortunately the patient is very stuporous and it is difficult to obtain any sort of timeline from her. According to the mother she was recently incarcerated but was released over 2 weeks ago. She is hepatitis-C positive. She has a history of drug abuse. She reports that she has recently used methamphetamine but says that she has not recently used any opiates. She is not in any overt pain at the time that I examined her and when I arrived she was lying in her hospital bed appearing very somnolent, responding to questions appropriately but only in a few words, not vocalizing any pain other than slight moaning. [facility] Social History Smoking Status: Current every day smoker Meds Home Medications and Allergies Allergies Allergy/AdvReac Type Severity Reaction Status Date / Time azithromycin Allergy Verified 04/04/24 16:55 Exam Vital Signs (past 8 hours): - 04/04/24 16:43 04/04/24 16:50 04/04/24 16:51 Temperature 97.7 F Pulse Rate 124 H 124 H Respiratory Rate 14 Blood Pressure 115/86 Pulse Oximetry 99 95 98 Oxygen Delivery Method Room Air 04/04/24 16:51 04/04/24 17:00 04/04/24 17:19 Temperature Pulse Rate 120 H 116 H Respiratory Rate 17 19 Blood Pressure 115/86 Pulse Oximetry 99 100 Oxygen Delivery Method 04/04/24 17:19 04/04/24 17:30 04/04/24 17:30 Temperature Pulse Rate 116 H Respiratory Rate 15 Blood Pressure 141/86 H 129/81 Pulse Oximetry 100 Oxygen Delivery Method Room Air 04/04/24 18:00 04/04/24 18:00 04/04/24 18:30 Temperature Pulse Rate 106 H 105 H Respiratory Rate 17 Blood Pressure 133/85 Pulse Oximetry 100 100 Oxygen Delivery Method 04/04/24 18:30 04/04/24 18:52 04/04/24 18:52 Temperature Pulse Rate 103 H Respiratory Rate Blood Pressure 128/86 131/76 Pulse Oximetry 100 Oxygen Delivery Method 04/04/24 19:00 04/04/24 19:00 Temperature Pulse Rate 102 H Respiratory Rate 11 L Blood Pressure 124/77 Pulse Oximetry 100 Oxygen Delivery Method Room Air Oxygen Delivery Method Room Air Narrative Exam Narrative: Right lower extremity: The compartments in the lower leg are all globally swollen. She is only mildly tender to palpation throughout those compartments. Her foot is mottled and discolored, as shown in the photograph above. She reports that she has intact sensation in the foot with light touch. She has no motor function in her gastrocsoleus complex or in her anterior compartment musculature, with complete inability to dorsiflex or plantar flex her hallux or her ankle. She has no pain with passive flexion or extension of the hallux and is able to tolerate this without severe discomfort. I am not able to palpate a PT or DP pulse however she does have intact capillary refill in her foot. Objective Imaging CTA abdomen pelvis: My impression: CTA runoff extending down the right lower extremity demonstrates loss of flow in the popliteal fossa with no flow extending down past that point. Radiologist's impression: O cclusion?of?the?right?lower?extremity?calf?arteries,?just?beyond?the?trifurcatio n. S ignificant?muscular?edema?of?the?right?lower?extremity?calf;?compartment?syndrom e?is?not?excluded?given?the?edema?and?the?vessel?occlusion. L arge?right?hip?joint?effusion.??Consider?sampling?to?exclude?an?infectious?proce ss. No?discitis/osteomyelitis?of?the?visualized?lumbar?spine Labs 04/04/24 17:00 04/04/24 17:00 Labs: Laboratory Results - last 24 hr 04/04/24 17:00 WBC 11.9 H RBC 6.48 H Hgb 18.4 H Hct 54.0 H MCV 83.3 MCH 28.3 MCHC 34.0 RDW 13.1 Plt Count 303 Neut % (Auto) 86.3 H Lymph % (Auto) 7.5 L [place] % (Auto) 6.0 Eos % (Auto) 0.0 L Baso % (Auto) 0.2 Neut # (Auto) 59735 H Lymph # (Auto) 900 L [place] # (Auto) 700 Eos # (Auto) 0 Baso # (Auto) 0 Sodium 130 L Potassium 4.5 Chloride 94 L Carbon Dioxide 28 BUN 17 Creatinine 1.28 H Estimated GFR 56 L BUN/Creatinine Ratio 13.3 Glucose 139 H Lactate 2.0 Calcium 9.0 Magnesium 2.4 H Total Bilirubin 0.8 AST 2876 H ALT 550 H Alkaline Phosphatase 80 Total Creatine Kinase > 211119 H Troponin I < 0.012 Total Protein 9.0 H Albumin 4.8 Globulin 4.2 H Albumin/Globulin Ratio 1.1 Lipase 65 Assessment & Plan Assessment and plan (1) Compartment syndrome of right lower extremity: Status: Acute Plan Given the timeline which was offered by the patient's mother of symptoms which have been present for over 24 hours, her creatine kinase which we could not measure at our lab at this facility due to it being too high with a cutoff of 120,000, the lack of any motor function in the foot, the absence of pain with passive stretch (although this is potentially confounded by drug use as the patient is altered), and the mottled appearance of her foot I am very concerned that her presentation represents a missed compartment syndrome and that it is already too late for fasciotomies to salvage her function of her lower extremity. I came to the hospital today in an emergent fashion to evaluate the patient immediately anticipating that fasciotomies could represent limb salvage in her case however given the findings which we have arrived at in coordination with the emergency team here, I believe that care at a high level facility as necessary for management of the anticipated sequelae of this diagnosis. I have stayed at the bedside in an attempt to help coordinate a transitioned to a higher level of care. Should an accepting facility desire fasciotomies be performed prior to the patient being transferred to their facility, I would perform this procedure prior to transfer. Time-Based Coding :: [TOTAL MINUTES] spent with patient and on the chart (including review of chart, obtaining history, exam, reviewing outside data, placing orders, documenting exam and treatment plan, and counseling patient) on [DATE].
--- NOTE | 2024-04-04 20:43 | PC.NURSE ---
vanco was stopped at 1957 see SONIA, this RN noticed that patient has redness across chest and in her face. Lungs sounds are clear, respirations are even and unlabored, patient is able to swallow, provider James is aware.
[2024-04-04] MEDS: SODIUM CHLORIDE 0.9% 1,000 ML 84 ML IV (23:26)
[2024-04-04] MEDS: CEFAZOLIN 2 GM/100 ML PREMIX 100 ML IV (23:38)
--- NOTE | 2024-04-04 23:57 | SUR.OPER ---
Supine on padded OR bed, head on pillow, arms secured on padded arm boards at <90 degrees abduction, legs uncrossed, safety belt at thigh, tape over blanket over lower legs.
[2024-04-05] VITALS (11 sets, daily range): BP systolic 117–130; BP diastolic 82–94; PULSE 90–95; RESP 11–23; TEMP 37.4–37.6; O2SAT 98–100
[2024-04-05] MEDS: SODIUM CHLORIDE 0.9% 1,000 ML 84 ML IV ×2 (00:05→01:45)
--- NOTE | 2024-04-05 00:26 | PM.OP.1 ---
Operative Date/Time/Diagnoses Date of procedure: 04/05/24 Pre-op diagnosis: Right lower extremity missed compartment syndrome Post-op diagnosis: same Procedure & Clinicians Procedure: 4 compartment fasciotomy of right lower extremity Same procedure as scheduled: Yes Surgeon: Franco Miranda Anesthesia Type: General Operative Notes Estimated Blood Loss (mL): 150 Procedure in detail: This 38-year-old female patient presented to the emergency department this evening with right lower leg swelling most prominent in her calf. History was very difficult to ascertain because of altered mental status presumably due to drug intoxication. She endorses using methamphetamines approximately 48 hours prior to arrival, but denies any opiate use recently. My attempts to obtain a history from her were largely unsuccessful. She would respond in short phrases but was very somnolent and although she answered questions appropriately did not provide much useful information. Her mother was with her initially in the evening and I was able to obtain some useful history elements from her mother. Her mother noted that swelling has been present for over 24 hours in the affected extremity. Her mother believed it was very possible that she had had an extended period of time down after drug intoxication and that this could have resulted in her presentation. I evaluated her for acute compartment syndrome and fortunately found that my examination was more consistent with a missed compartment syndrome. Her mother's report of swelling for greater than 24 hours along with her creatine kinase which was too high for our lab to be able to measure accurately, absence of pain with passive motion, absence of any motor function, and the CTA runoff which demonstrated loss of flow in the popliteal fossa all indicated that she had arrived at our facility outside of the window when fasciotomies could salvage function of her leg. I discussed this in very concrete terms with her and her mother. Her mother did seem to grasp the ramifications of her presentation although the patient did not, due to her altered mental status. Given the vascular compromise and her impending rhabdomyolysis acceleration to a higher level of care was necessary and we reached out to several facilities in order to attempt to coordinate this. As a component of the coordination of accelerating her to a higher level of care I inquired with an accepting facility as to whether they would prefer to have fasciotomies performed at our facility prior to transfer. They indicated that they would prefer to have these fasciotomies performed here before transfer so on an emergent basis I brought the patient to the operating room for a right lower extremity fasciotomy. At that point in the evening the patient's mother had returned home so a 2 physician consent was utilized to move forward with the surgery on an emergent basis. The patient was brought back to the operating room and general anesthesia was induced. The operative extremity was prepped and draped in the usual sterile fashion. A time-out procedure was performed. A Light catheter was placed given our anticipation that she would soon developed rhabdomyolysis given her anticipated extensive myonecrosis. Consistent with this anticipated finding her urine was very dark in the Light bag after we placed the Light catheter. I mapped out the anatomic landmarks for the 4 compartment fasciotomy, mapping out the full length of the fibula as well as the tibia. I planned incisions that would allow for a 4 compartment fasciotomy just anterior to the fibula and just posterior to the tibia. Began on the lateral side and incised along my planned incision. I carefully dissected avoiding the peroneal nerve. I incised over the intermuscular septum between the anterior and lateral compartments and then used dissecting scissors to cut the fascia both proximally and distally in the anterior compartment. Immediately noted herniating muscle coming out of the fascia. When evaluating with electrocautery I found that it was not contractile. I then in similar fashion performed a fasciotomy in the lateral compartment and again noted herniating muscle which was not contractile. Then moved to the medial side and incised along my planned incision posterior to the tibia. I ensured that I did not disrupt the saphenous nerve while dissecting down to the fascia. Incised the superficial compartment musculature and used dissecting scissors to extend this proximally and distally. Similar to the prior 2 compartments there was herniating muscle immediately which was not contractile. I then used a Westfall elevator to release the deep posterior compartment off of the back of the tibia. I again noted a lack of contractile tissue in that deep posterior compartment. Overall all of the muscle was non contractile and discolored consistent with the preoperative presumption that she had arrived at our facility to late for any intervention to have made a difference in the viability of her lower extremity. I did attempt to palpate for PT and DP pulses and could not palpate a pulse on either 1. She still had capillary refill intact in the foot although this had been present preoperatively as well. I placed a wound VAC over the 2 respective incisions and ensured that they had a proper seal, then transferred the patient off of the operating room table. She was brought to the PACU and awoken without immediate apparent complication Post-operative Plan for aftercare: The patient is going to be transferred to a higher level facility this evening. Ongoing care for her will be complicated and involve management of her myonecrosis and resultant rhabdomyolysis. At this point in time she has open wounds on both the medial and lateral side which are covered with a wound VAC through a single hose to a Y-connector. The muscle throughout the entire lower extremity was not contractile and further debridements will certainly be required. We will aggressively fluid resuscitate the patient and attempt to medically stabilize her in preparation for her transfer to a higher level facility.
--- NOTE | 2024-04-05 00:44 | SUR.PHASEI ---
Patient to PACU in stable condition s/p fasciotomy right lower extremity with wound vac in place. Drowsy but arousable. VSS. Repeat BMP collected and sent to lab. Awaiting transfer to [facility].
[2024-04-05 00:52] LABS: BUN Creatinine Ratio 12.1 (6-22); Blood Urea Nitrogen 17 mg/dL (7-17); Calcium 7.1 mg/dL (8.4-10.2); Carbon Dioxide 27 mmol/L (22-32); Chloride 103 mmol/L (98-107); Estimated Glomerular Filt Rate 50 mL/min (>60); Glucose 118 mg/dL (70-100); HEMOLYSIS 38 (0-50); Sodium 130 mmol/L (137-145)
--- NOTE | 2024-04-05 01:24 | SUR.PHASEI ---
Urine collected from bustos bag and sent to lab. Awaiting ground transport. Patient resting quietly with eyes closed; RR even and unlabored; no distress noted; does not appear to be in discomfort. VSS. Bustos cathter draining to bedside bag without difficulty.
[2024-04-05 01:38] LABS: Ur Creatinine Normal (Normal); Ur Specific Gravity Normal (Normal)
[2024-04-05 01:39] LABS: Bilirubin Urine UA NEGATIVE (NEGATIVE); Glucose Urine UA NEGATIVE (Negative); Ketones Urine UA NEGATIVE (NEGATIVE); Leukocyte Esterase Urine UA NEGATIVE (NEGATIVE); Nitrite Urine UA POSITIVE (Negative); Occult Blood Urine UA 3+ (Negative); Protein Urine UA 2+ (Negative); UR Morphine/Opiate cutoff 300 Positive (Negative); Urine Amphetamines Positive (Negative); Urine Barbiturates Negative (Negative); Urine Benzodiazepines Positive (Negative); Urine Cocaine Negative (Negative); Urine MDMA Negative (Negative); Urine Methadone Negative (Negative); Urine Methamphetamines Positive (Negative); Urine Oxycodone Negative (Negative); Urine Phencyclidine Negative (Negative); Urine Tetrahydrocannabinol Negative (Negative); Urine Tricyclic Antidepressant Negative (Negative); Urine pH Normal (Normal); Urobilinogen Urine UA 0.2 E.U./dL (0.2)
[2024-04-05 01:40] LABS: Appearance Urine UA Cloudy; Color Urine UA BROWN; Urine Volume 10mL (spun); pH Urine UA 5.5 (4.5-8.0)
[2024-04-05 01:41] LABS: Amorphous Sediment Urine 2+; Bacteria Urine Few (2-10); RBC Urine 1-5/HPF (0-5/HPF); Squamous Epithelial Cell Urine 0-1 /HPF (0-5/HPF); WBC Urine 0-1/HPF (0-5/HPF)
[2024-04-05 01:42] LABS: Culture Indicated Urine Specimen Cultured
== END 2024-04-05 02:18 | disposition short-term general hospital (02) ==
LOC: ED 22:51 → AC 23:00
PROVIDERS: Emergency Medicine; Admitting Provider Orthopaedic Surgery Adult Reconstructive Orthopaedic Surgery; Emergency Provider Emergency Medicine; Referring Provider Emergency Medicine; Visit Provider Orthopaedic Surgery Adult Reconstructive Orthopaedic Surgery
PROC: (CPT 27602; principal; 2024-04-04 23:00)
DX: M79.A21 Nontraumatic compartment syndrome of right lower extremity (principal); A48.0 Gas gangrene; M62.82 Rhabdomyolysis; R41.82 Altered mental status, unspecified; B19.20 Unspecified viral hepatitis C without hepatic coma; F17.200 Nicotine dependence, unspecified, uncomplicated
CPT/HCPCS: 27602; 36415; 71045; 75635; 80048; 80053; 80305; 81001; 82550; 83605; 83690; 83735; 84484; 85025; 87040; 87077; 87086; 93005; 93010; 93926; 96361; 96365; 96367; 96375; 99284; 99291; 99292; G0378; J0690; J0692; J1100; J1171; J1644; J2250; J2405; J2704; J3010; J3490; Q9967